=== PATIENT | female | born 1960 | race Caucasian/White ===

== ENCOUNTER 2016-09-18 01:03 | Emergency (ER) | payer BC ==
[~2016-09-18] VITALS: Ht 162.6 cm; Wt 124.0 kg
[~2016-09-18 01:03] MED LIST: /RANI15TA PO; CALC600T7 PO; IRON28TA2 PO; LISI10TA2 PO; METFORMIN PO; MULTTAB4 PO; NAPR500T PO; ULTR50TA PO; VITA-130 PO; VITA400C2 PO; VITA500046 PO; VITAMIN B; VITAMIN B PO; ZEST10TA4 PO
[2016-09-18] MEDS ORDERED: IRON50TA PO (01:24)
[2016-09-18] MEDS ORDERED: IRBE300T10 (01:24)
[2016-09-18] MEDS ORDERED: TORS20TA2 (01:24)
[2016-09-18] MEDS ORDERED: METF500T4 (01:24)
[2016-09-18] MEDS ORDERED: MORPHINE 4 MG/ML 1ML SYRINGE IV PRN (03:30)
[2016-09-18] MEDS ORDERED: NS 1,000 ML IV ONE (03:30)
[2016-09-18] MEDS ORDERED: ONDANSETRON 4MG/2ML VIAL (J2405) IV ONE (03:30)
[2016-09-18 04:01] LABS: BASO # 0.1 K/mm3 (0.0-0.2); BASO % 0.6 % (0.0-1.0); EOS # 0.3 K/mm3 (0.0-0.50); EOS % 3.2 % (0.0-3.0); LARGE UNSTAINED CELL # 0.1 K/mm3 (0.0-0.4); LARGE UNSTAINED CELL % 1.1 % (0.0-4.0); LYMPH # 1.8 K/mm3 (1.5-4.5); LYMPH % 16.7 % (24.0-44.0); MEAN CORPUSCULAR HEMOGLOBIN 30.5 pg (27.0-33.0); MEAN CORPUSCULAR HGB CONC 32.9 g/dl (32.0-36.5); MEAN CORPUSCULAR VOLUME 92.7 fl (80.0-96.0); MONO # 0.3 K/mm3 (0.0-0.8); MONO % 3.4 % (0.0-5.0); NEUTROPHILS # 7.6 K/mm3 (1.8-7.7); NEUTROPHILS % 75.1 % (36.0-66.0); PLATELET COUNT, AUTOMATED 268 k/mm3 (150-450); RED CELL DISTRIBUTION WIDTH 13.4 % (11.5-14.5); WHITE BLOOD COUNT 10.2 K/mm3 (4.0-10.0)
[2016-09-18] MEDS ORDERED: diphenhydrAMINE INJ 50MG/ML VIAL (J1200) IV ONE (04:15)
[2016-09-18] MEDS ORDERED: LABETALOL HCL 100 MG/20 ML VIAL IV STA (04:15)
[2016-09-18 04:22] LABS: ALBUMIN 3.6 GM/DL (3.2-5.2); ALBUMIN/GLOBULIN RATIO 1.06 (1.00-1.93); ALKALINE PHOSPHATASE 72 U/L (45-117); ALT/SGPT 25 U/L (12-78); ANION GAP 7 MEQ/L (8-16); AST/SGOT 11 U/L (15-37); BILIRUBIN,DIRECT 0.1 MG/DL (0.0-0.2); BILIRUBIN,TOTAL 0.5 MG/DL (0.2-1.0); BLOOD UREA NITROGEN 9 MG/DL (7-18); CALCIUM LEVEL 9.5 MG/DL (8.5-10.1); CARBON DIOXIDE LEVEL 27 MEQ/L (21-32); CHLORIDE LEVEL 105 MEQ/L (98-107); CREATININE FOR GFR 0.93 MG/DL (0.55-1.02); GLOMERULAR FILTRATION RATE > 60.0 (>51); GLUCOSE, FASTING 110 MG/DL (70-105); POTASSIUM SERUM 3.8 MEQ/L (3.5-5.1); SODIUM LEVEL 139 MEQ/L (136-145)
[2016-09-18] MEDS ORDERED: ISOVUE-370 76% 100ML VIAL (Q9967) As Ordered ONE (04:46)
[2016-09-18 05:24] VITALS: BP 203/96
[2016-09-18] MEDS ORDERED: hydrALAZINE INJ 20 MG/ML VIAL IV ONE (05:30)
--- NOTE | 2016-09-18 05:40 | REPUSA ---
CLINICAL HISTORY: Abdominal pain. TECHNIQUE: Multiple axial, sagittal and coronal CT images were obtained through the abdomen and pelvi s after administration of oral and intravenous contrast material. COMMENTS: The liver is mildly enlarged with decreased attenuation without mass or defect. There is no intra or extrahepatic biliary ductal dilatation. The spleen is normal. The gallbladder is surgically absent. T he pancreas is of normal contour and attenuation characteristics. There is no evidence of adrenal mas s. Both kidneys demonstrate prompt and equal nephrograms. The kidneys are normal in size, shape and conf iguration. There is no evidence of renal or ureteral mass. No renal or ureteral calculi are identifie d. There is no hydroureter or hydronephrosis. No evidence for appendicitis. There is no bowel wall thickening. No evidence for small or large annika l obstruction. There is no evidence of abdominal ascites or lymphadenopathy. There is no evidence of intrinsic or extrinsic bladder mass. There is no pelvic ascites or lymphadeno denzel. Moderate fecal stasis in the cecum and ascending colon. Fluid-filled mildly dilated small annika l. Images of the lung bases show no evidence of pleural or parenchymal mass. There are no pleural effusi ons. The bony structures are free of lytic or blastic lesions. Multilevel degenerative changes are seen in volving the thoracolumbar spine. Scattered calcifications are seen involving the aorta and major bran ches compatible with atherosclerosis. IMPRESSION: Hepatomegaly with fatty infiltration. Cholecystectomy. Constipation. Fluid-filled dilated small bowel in the right lower quadrant. Ileus versus developing enteritis. Normal appendix. Thank you for your kind referral of this patient.
[2016-09-18] MEDS ORDERED: ZOFR4TAB3 PO (06:28)
[2016-09-18 06:30] VITALS: BP 170/82
[2016-09-18] MEDS ORDERED: OXYCODONE/APAP 5MG/325MG(BULK FOR ED) 1 TABLET PO ONE (06:30)
== END 2016-09-18 06:55 | disposition home or self-care (01) ==
LOC: M ED 02:19
DX: R10.31 Right lower quadrant pain (principal); R11.0 Nausea; L23.1 Allergic contact dermatitis due to adhesives; Z79.84 Long term (current) use of oral hypoglycemic drugs; Z79.899 Other long term (current) drug therapy; Z88.0 Allergy status to penicillin; Z88.2 Allergy status to sulfonamides; Z88.8 Allergy status to other drugs, medicaments and biological substances; Z91.011 Allergy to milk products
CPT/HCPCS: 36415; 74177; 80048; 80076; 81001; 83690; 85025; 87040; 87086; 93041; 96374; 96375; 99284; J1200; J2405; Q9967

== ENCOUNTER → 2018-01-02 | Outpatient (REF) | payer BC | LOC: M LAB REF 12:28 | DX: J02.9 Acute pharyngitis, unspecified (principal) | CPT/HCPCS: 87081 ==

== ENCOUNTER → 2020-07-23 | Outpatient (CLI) | payer BC, OTHER ==
[~2020-07-23] MED LIST changes: -/RANI15TA PO; +IRBE300T7; +IRON50TA PO; +METF-838; +RANI1TAB17 PO; +TORS20TA2; +ZOFR4TAB14 PO
--- NOTE | 2020-07-23 08:44 | REP ---
INDICATION: LEG PAIN, ELEVATED D DIMER. COMPARISON: None. TECHNIQUE: Right lower extremity duplex venous scanning. FINDINGS: The deep veins are anechoic and fully compressible from the groin to the popliteal fossa in the right lower extremity. Color flow imaging is homogeneous. Spectral Doppler interrogation demonstrates intact respiratory variation in flow and normal manual augmentation of flow. There is no evidence of deep vein thrombosis. There is a Otero's cyst in the popliteal fossa measuring 7.5 x 2.7 x 4.3 cm. IMPRESSION: Negative right lower extremity duplex venous ultrasound. No evidence of deep vein thrombosis. Right popliteal fossa Otero's cyst. <Electronically signed by Miguel Grady > 07/23/20 [id number]
== END ==
LOC: M RAD 06:32
PROVIDERS: ATTEND Family Medicine
DX: M79.661 Pain in right lower leg (principal); M71.21 Synovial cyst of popliteal space [Baker], right knee

== ENCOUNTER → 2021-08-13 | Outpatient (CLI) | payer BC | LOC: M WHC 13:36 | PROVIDERS: ATTEND Internal Medicine Nephrology | DX: N18.31 Chronic kidney disease, stage 3a (principal); E83.52 Hypercalcemia; M85.852 Other specified disorders of bone density and structure, left thigh ==

== ENCOUNTER → 2021-08-20 | Outpatient (CLI) | payer BC, OTHER | LOC: M RAD 12:10 | PROVIDERS: ATTEND Internal Medicine Nephrology | DX: N18.31 Chronic kidney disease, stage 3a (principal); E83.52 Hypercalcemia ==

== ENCOUNTER → 2021-09-21 | Outpatient (CLI) | payer BC | LOC: M RAD 09:23 | PROVIDERS: ATTEND Internal Medicine Nephrology | DX: N18.31 Chronic kidney disease, stage 3a (principal) ==

== ENCOUNTER → 2022-04-28 | Outpatient (CLI) | payer BC | LOC: M RAD 14:45 | PROVIDERS: ATTEND Family Medicine | DX: M16.0 Bilateral primary osteoarthritis of hip (principal) ==

== ENCOUNTER → 2022-05-14 | Outpatient (CLI) | payer BC ==
[2022-05-14 11:32] LABS: ALBUMIN 3.7 G/DL (3.2-5.2); CREATININE FOR GFR 1.14 MG/DL (0.55-1.30); GLOMERULAR FILTRATION RATE 51.8 (>45); PHOSPHORUS LEVEL 2.9 MG/DL (2.4-5.1); POTASSIUM SERUM 3.8 MMOL/L (3.5-5.1)
[2022-05-14 11:33] LABS: PTH INTACT 148.2 PG/ML (18.5-88.0)
== END ==
LOC: M LAB 10:35
PROVIDERS: ATTEND Internal Medicine Nephrology
DX: E83.52 Hypercalcemia (principal)

== ENCOUNTER → 2022-06-09 | Outpatient (CLI) | payer BC | LOC: M RAD 13:31 | PROVIDERS: ATTEND Family Medicine | DX: M54.16 Radiculopathy, lumbar region (principal); M43.16 Spondylolisthesis, lumbar region; M48.061 Spinal stenosis, lumbar region without neurogenic claudication ==

== ENCOUNTER → 2022-06-17 | Outpatient (CLI) | payer BC | LOC: M RAD 09:03 | PROVIDERS: ATTEND Family Medicine | DX: M48.061 Spinal stenosis, lumbar region without neurogenic claudication (principal); D18.09 Hemangioma of other sites; M47.816 Spondylosis without myelopathy or radiculopathy, lumbar region; M51.26 Other intervertebral disc displacement, lumbar region; M79.89 Other specified soft tissue disorders; R93.3 Abnormal findings on diagnostic imaging of other parts of digestive tract ==

== ENCOUNTER → 2022-07-15 | Outpatient (CLI) | payer BC ==
[2022-07-15 17:06] LABS: CALCIUM LEVEL 10.3 MG/DL (8.3-10.6); CREATININE FOR GFR 1.13 MG/DL (0.55-1.30); GLOMERULAR FILTRATION RATE 52.3 (>45); POTASSIUM SERUM 3.8 MMOL/L (3.5-5.1)
== END ==
LOC: M LABDRWAD 15:20
PROVIDERS: ATTEND Student in an Organized Health Care Education/Training Program
DX: Z01.818 Encounter for other preprocedural examination (principal)

== ENCOUNTER → 2023-04-06 | Outpatient (CLI) | payer BC ==
[2023-04-06 10:21] LABS: IONIZED CALCIUM 4.8 MG/DL (4.5-5.3)
[2023-04-06 10:45] LABS: CREATININE FOR GFR 1.15 MG/DL (0.55-1.30); GLOMERULAR FILTRATION RATE 51.1 (>45); POTASSIUM SERUM 3.7 MMOL/L (3.5-5.1); PTH INTACT 58.7 PG/ML (18.5-88.0)
[2023-04-06 10:47] LABS: FREE T4 1.38 NG/DL (0.89-1.76); THYROID STIMULATING HORMONE 3.071 uIU/ML (0.55-4.78)
== END ==
LOC: M LAB 09:49
PROVIDERS: ATTEND Family Medicine
DX: E21.3 Hyperparathyroidism, unspecified (principal); E03.9 Hypothyroidism, unspecified

== ENCOUNTER → 2023-12-29 | Outpatient (CLI) | payer BC ==
[~2023-12-29] MED LIST changes: +IRBE300T25; -IRBE300T7
== END ==
LOC: M RAD 14:20
PROVIDERS: ATTEND Family Medicine
DX: E04.9 Nontoxic goiter, unspecified (principal)